=== PATIENT | female | born 1935 | race Caucasian/White ===

== ENCOUNTER → 2023-03-26 | Outpatient (CLI) | payer MEDICARE, MEDICAID, SELFPAY ==
--- NOTE | 2023-03-26 13:12 | US_ITS ---
EXAM: US RETROPERITONEAL LIMITED, RENAL CLINICAL INDICATION: UTI TECHNIQUE: Limited grayscale and color Doppler sonographic evaluation of the retroperitoneum was performed. COMPARISON: No relevant prior studies available. FINDINGS: RIGHT KIDNEY: The right kidney measures 9.3 x 3.6 x 4.9 cm. The right renal cortex measures 1.3 cm. No hydronephrosis. No shadowing calculus. No perinephric collection is demonstrated. LEFT KIDNEY: The left kidney measures 9.3 x 3.8 x 4.1 cm. The left renal cortex measures 1.4 cm. No hydronephrosis. No shadowing calculus. No perinephric collection is demonstrated. BLADDER: The bladder measures 6.9 x 4.5 x 4.3 cm for volume of 70 mL. The bladder wall measures 5 mm. US/Kidney and Bladder IMPRESSION: No acute findings in the retroperitoneum. Electronically Signed: Blake Rahman MD at 16:56 EDT ,
== END | disposition home or self-care (01) ==
PROVIDERS: Referring Provider Urology; Visit Provider Urology
DX: N39.0 Urinary tract infection, site not specified (principal)
CPT/HCPCS: 76770